=== PATIENT | male | born 1990 | race Caucasian/White ===

== ENCOUNTER 2017-07-14 12:17 | Emergency (ER) | payer MEDICAID ==
[~2017-07-14] VITALS: Ht 170.2 cm; Wt 78.0 kg
[~2017-07-14 12:17] MED LIST: ACET1TAB12 PO; CRUT1EAC36 TOP; NAPR-56 PO; NO HOME MEDS; [UNRECOGNIZED DRUG - CODE] MC
[2017-07-14] MEDS ORDERED: NAPR-1154 PO (12:55)
[2017-07-14] MEDS ORDERED: PENI250T2 PO (12:55)
[2017-07-14 13:00] VITALS: BP 155/101
== END 2017-07-14 13:00 | disposition home or self-care (01) ==
LOC: ER 12:18
DX: K04.7 Periapical abscess without sinus (principal); K02.9 Dental caries, unspecified; F11.10 Opioid abuse, uncomplicated; Z79.899 Other long term (current) drug therapy
CPT/HCPCS: 99283